=== PATIENT | female | born 1965 | race African-American/Black ===

== ENCOUNTER 2016-07-28 11:47 | Emergency (ER) | payer SELFPAY ==
[2016-07-28] MEDS ORDERED: Ondansetron HCl/PF 4 MG/2 ML Vial ONE (12:40)
--- NOTE | 2016-07-28 13:00 | RAD ---
ONE VIEW CHEST HISTORY: Chest pain. COMPARISON: 01/16/2016 FINDINGS: There is magnification of the cardiac silhouette due to the portable technique. There is diminished lung volume. Interstitial and alveolar opacities are felt to be due to chronic change. No pneumot horax or osseous abnormalities. IMPRESSION: Chronic changes. POS: [facility]
[2016-07-28 13:16] LABS: ALT (SGPT) 18 U/L (0-55); AST (SGOT) 39 U/L (5-34); Albumin 3.8 g/dL (3.5-5.0); Alkaline Phosphatase 118 U/L (40-150); Anion Gap 16 mmol/L (10-20); BUN (Urea Nitrogen) 13 mg/dL (9.8-20.1); Bilirubin, Total 0.9 mg/dL (0.2-1.2); Calc. Creatinine Clearance 0 mL/min (70-130); Calcium 8.9 mg/dL (7.8-10.44); Carbon Dioxide 24 mmol/L (22-29); Chloride 106 mmol/L (98-107); Estimated GFR-MDRD 73; Globulin 4.4 g/dL (2.4-3.5); Glucose 100 mg/dL (70-105); Potassium 3.4 mmol/L (3.5-5.1); Protein, Total 8.2 g/dL (6.0-8.3); Sodium 143 mmol/L (136-145)
[2016-07-28 13:22] LABS: CKMB 1.4 ng/mL (0-6.6); Troponin I Less than 0.010 ng/mL (< 0.028)
[2016-07-28 13:38] LABS: #Eosinphils 0.3 thou/uL (0.0-0.7); #Lymphocytes 0.8 thou/uL (1.20-3.40); #Monocytes 0.6 thou/uL (0.11-0.59); #Neutrophils 2.6 thou/uL (1.40-6.50); %Basophils 0.8 % (0.0-1.0); %Eosinophils 7.3 % (0.0-10.0); %Lymphocytes 17.7 % (21.0-51.0); %Neutrophils 60.1 % (42.0-75.0); Hemoglobin 11.1 g/dL (12.0-16.0); Mean Corpuscular HGB CONC 31.7 g/dL (32.0-36.0); Mean Corpuscular Hemoglobin 22.1 pg (27.0-31.0); Mean Corpuscular Volume 69.5 fl (81.0-99.0); Mean Platelet Volume 13.6 fL (7.4-10.4); Platelet Count 111 thou/uL (130-400); RBC Distribution Width 16.4 % (11.5-14.5); Red Blood Cell (RBC) Count 5.03 mill/uL (4.20-5.40); White Blood Cell (WBC) Count 4.3 thou/uL (4.8-10.8)
[2016-07-28 13:39] LABS: Anisocytosis MARKED = >30 cells (100X) (0-5/hpf); Microcytosis MARKED = >30 cells (100X) (0-5/hpf); PLT Morphology Comment Appears Decreased
--- NOTE | 2016-07-28 13:39 | CT ---
NONCONTRAST HEAD CT HISTORY: Dizziness (onset this morning). COMPARISON: 07/13/2016 TECHNIQUE: A noncontrast head CT is performed from the skull base to the skull vertex. FINDINGS: No parenchymal hemorrhage. No extraaxial hematoma. No midline shift. The basilar cisterns are pat ent. Brain volume is age appropriate. Cortical glass white matter differentiation is preserved. Ve ntricles and sulci are patent and symmetric. The calvarium is intact. There is adequate aeration o f the sinuses and mastoid air cells. When compared to the previous exam, no significant change. IMPRESSION: No acute intracranial process. Non-emergent brain MRI, if clinically warranted. POS: [facility]
[2016-07-28] MEDS ORDERED: Potassium Chloride 20 MEQ TAB ONE (13:50)
[2016-07-28 13:56] LABS: Bilirubin Negative (Negative); Blood, Urine Negative (Negative); Clarity Clear (Clear); Glucose, Urine (Dipstick) Negative (Negative); Leukocyte Negative (Negative); Nitrite Negative (Negative); Protein, Urine (Dipstick) Negative (Neg-Trace); Specific Gravity, Urine 1.025 (1.005-1.030)
[2016-07-28 14:14] LABS: Amphetamine Not Detected (NotDetected); Barbiturates Screen Not Detected (NotDetected); Benzodiazepine Screen Not Detected (NotDetected); Cocaine Metabolite Screen Not Detected (NotDetected); Medtox Control Line Valid? VALID (VALID); Methadone Not Detected (NotDetected); Methamphetamine Not Detected (NotDetected); Opiate Screen Not Detected (NotDetected); Oxycodone Screen Not Detected (NotDetected); Phencyclidine (PCP) Not Detected (NotDetected); THC/Cannabinoid Screen Not Detected (NotDetected); Tricyclic Screen Not Detected (NotDetected)
--- NOTE | 2016-07-28 14:44 | ERRECORD ---
[facility] EMERGENCY RECORD HPI WEAK-DIZZY CHIEF COMPLAINT: Patient presents for evaluation of dizziness. (12:27 LHOD) HISTORIAN: History provided by patient. (12:27 LHOD) TIME COURSE: APPROX. 1030 TODAY WHILE PT WAS AT WORK. REPORTED SHE TURNED HER HEAD AND FELT DIZZY. REPORTS LESS AT THIS MOMENT, BUT SHE WAS UNABLE TO WALK WITHOUT STAGGERING. DENIES SERRA. REPORTS SHE HAS HAD SOME CHEST PAINS OFF AND ON THIS WEEK. REPORTS HAS HX OF HEART FAILURE. (12:27 LHOD) ASSOCIATED WITH: Associated with ataxia, Associated with chest pain, No associated chills, No associated ear pain, No associated fever, Associated with gait disturbance, No associated headache, Associated with nausea, No associated palpitations, No associated vomiting, No associated visual changes, Associated with upper respiratory infection. (13:12 LHOD) ROS (13:07 LHOD) CONSTITUTIONAL: Historian denies fever. EYES: Historian denies eye pain, denies vision changes. ENT: Historian denies hearing changes. CARDIOVASCULAR: Historian reports chest pain, OFF AND ON MID STERNAL PAINS. HAD 1 TIME DURING EXAM WITH COUGH. RESPIRATORY: Historian reports cough, denies shortness of breath. GI: Historian denies abdominal pain, reports nausea, denies vomiting. GENITOURINARY FEMALE: Historian denies dysuria. MUSCULOSKELETAL: Historian denies back pain, denies neck pain. SKIN: Historian denies rash. NEUROLOGIC: Historian reports dizziness, denies focal weakness, reports gait changes, denies headache. REPORTS STAGGERING. HEMO/LYMPHATIC: Historian denies easy bruising. NOTES: All systems reviewed, negative except as described above. PAST MEDICAL HISTORY MEDICAL HISTORY: Flu vaccine not up to date, Tetanus immunization up to date, Pneumococcal vaccine not up to date, Past medical history includes cardiac history, congestive heart failure, Past medical history includes pulmonary disease, chronic obstructive pulmonary disease, Past medical history includes history of hyperlipidemia, currently being treated, Past medical history includes history of diabetes, Type II, Age of onset: 43, Past medical history includes history of hypertension, which has been treated, Patient is compliant, Past medical history includes pulmonary disease, asthma., HX OF HEP B, HX OF HYPOKALEMIA. (Sat Jul 28, 2016 11:58 MDEB) FEMALE SURGICAL HISTORY: Surgical history of hysterectomy. (Sat Jul 28, 2016 11:58 MDEB) PSYCHIATRIC HISTORY: No previous psychiatric history. &a-1R&a+25V*p+0X*[id number]*c202B*c15G*c2P*p-0X&a-25V&a+1R Name: Elizabeth Arreguin : 1965 F51 MedRec: [id number] AcctNum: [id number] Prepared: [facility] Jul 28, 2016 15:18 by Interface Page 1 of 4 pMD [facility] EMERGENCY RECORD ([facility] Jul 28, 2016 11:58 MDEB) SOCIAL HISTORY: Patient drinks socially, Patient denies drug use, Patient drinks socially, Patient denies drug use, Patient is a former tobacco user, smoked cigarettes, Patient quit smoking in the past year. ([facility] Jul 28, 2016 11:58 MDEB) NOTES: Nursing records reviewed. (13:34 LHOD) KNOWN ALLERGIES No Known Allergies (Unconfirmed) No Known Drug Allergies CURRENT MEDICATIONS No recorded medications VITAL SIGNS VITAL SIGNS: BP: 193/111, Pulse: 70, Resp: 20, Temp: 97.0 (Tympanic), Pain: 0, O2 sat: 99 on Room Air, Time: 07/28/2016 11:55. (11:55 MDEB) BP: 136/85, Pulse: 70, Resp: 18, Temp: 97.2, Pain: 0, O2 sat: 97 on RA, Time: 07/28/2016 14:33. (14:33 MDEB) BP: 157/88, Pulse: 65, Resp: 16, Pain: 0, O2 sat: 97 on Room Air, Time: 07/28/2016 12:30. (12:30 MDEB) BP: 158/89, Pulse: 74, Resp: 16, Pain: 0, O2 sat: 99 on Room Air, Time: 07/28/2016 13:00. (13:00 MDEB) BP: 147/74, Pulse: 67, Resp: 20, Pain: 0, O2 sat: 98 on Room Air, Time: 07/28/2016 13:30. (13:30 MDEB) BP: 165/95, Pulse: 68, Resp: 18, Pain: 0, O2 sat: 98 on Room Air, Time: 07/28/2016 14:00. (14:00 MDEB) PHYSICAL EXAM (13:13 LHOD) CONSTITUTIONAL: Vital signs reviewed, Patient afebrile, Pulse normal, Blood pressure, hypertensive, Respiratory rate normal, Patient appears non toxic, Patient appears pain free, Patient alert and oriented to person, place and time. HEAD: Head exam included findings of head atraumatic. EYES: Pupils equally round and reactive to light, Extraocular muscles intact. ENT: Ear exam normal, Pharynx exam normal. NECK: Neck exam included findings of normal range of motion, Trachea midline, no carotid bruits, no meningeal signs. RESPIRATORY CHEST: Respiratory exam included findings of no respiratory distress, Breath sounds clear. CARDIOVASCULAR: Cardiovascular exam included findings of heart rate regular rate and rhythm, Heart sounds normal. ABDOMEN FEMALE: Abdominal exam included findings of abdomen nontender. BACK: Back exam normal. UPPER EXTREMITY: Upper extremity exam normal. LOWER EXTREMITY: Lower extremity exam normal. NEURO: Neuro exam findings include patient oriented to person, &a-1R&a+25V*p+0X*[id number]*c202B*c15G*c2P*p-0X&a-25V&a+1R Name: Elizabeth Arreguin : 1965 F51 MedRec: [id number] AcctNum: [id number] Prepared: [facility] Jul 28, 2016 15:18 by Interface Page 2 of 4 pMD [facility] EMERGENCY RECORD place and time, Speech normal, Memory normal, Cranial nerves intact, no focal motor deficits, no focal sensory deficits, no nystagmus. SKIN: no rash. EKG INTERPRETATION (12:25 LHOD) 12 LEAD EKG INTERPRETATION: 12 lead EKG interpreted by Emergency Department Physician at time of study, 12 lead EKG shows normal sinus rhythm, Rate (beats per minute): 65, with no ectopics, T waves, inverted, Leads affected: II, Leads affected: III, Fisher, left. RADIOLOGYINTERPRETATION HEAD: Head CT negative, without contrast. (13:10 LHOD) CHEST: Films of the chest show, interstitial infiltrate, patchy infiltrate, DIFFUSE INCREASED INTERSTITIAL INFILTRATES WITH PATCHY INFILTRATE IN RIGHT AND LEFT LOWER T[place]AS [place]. (12:55 LHOD) MEDICATION ADMINISTRATION SUMMARY Drug Name: potassium chloride oral, Dose Ordered: 20 mEq, Route: Oral, Status: Given, Time: 13:54 07/28/2016, Drug Name: Zofran intravenous, Dose Ordered: 8 mg, Route: IV Push, Status: Given, Time: 12:45 07/28/2016, Detailed record available in Medication Service section. DOCTOR NOTES (13:48 LHOD) TEXT: 1348--AMBULATORY WITHOUT ATAXIA. LUNGS--COARSE BREATH SOUNDS WITHOUT WHEEZING. AWAITING UA. 1423--BP 136/85. PT AMBULATORY WITHOUT DIZZINESS. AT FIRST PT REPORTED SHE NEEDS REFILLS ON ALL HER MEDICATION, THEN ADDED SHE CAN GET THEM TOMORROW. DENIES NEEDING PRESCRIPTIONS. PT HAS SEVERE CHRONIC LUNG DISEASE AND MILD CHF. ADVISED TO F/U WITH HER DOCTOR. STABLE FOR DISCHARGE. PROBLEM LIST No recorded problems DIAGNOSIS (14:25 LHOD) FINAL: PRIMARY: TRANSIENT DIZZINESS---POSSIBLE BENIGN POSITIONAL VERTIGO, ADDITIONAL: Hypokalemia, LABILE HYPERTENSION. PRESCRIPTION (14:26 LHOD) Antivert/25: TABLET : 25 mg : ORAL : Quantity: 25 Unit: mg Route: ORAL Schedule: every 6 hours PRN Dispense: 10 May substitute. Refills: No Refills . NOTES: No Refills. DISPOSITION &a-1R&a+25V*p+0X*[id number]*c202B*c15G*c2P*p-0X&a-25V&a+1R Name: Elizabeth Arreguin : 1965 F51 MedRec: [id number] AcctNum: [id number] Prepared: Sat Jul 28, 2016 15:18 by Interface Page 3 of 4 pMD [facility] EMERGENCY RECORD PATIENT: Disposition Type: Discharge, Disposition: *Discharge Home, Condition: Good. (14:25 LHOD) Patient left the department. (14:34 MDEB) Chong: LHOD=MD Julia, Priscilla JUNIOREB=CHELSIE Nolan, Alia &a-1R&a+25V*p+0X*[id number]*c202B*c15G*c2P*p-0X&a-25V&a+1R Name: Elizabeth Arreguin : 1965 F51 MedRec: [id number] AcctNum: [id number] Prepared: Sat Jul 28, 2016 15:18 by Interface Page 4 of 4 pMD MTDD
--- NOTE | 2016-07-28 14:49 | PICIS ---
[facility] EMERGENCY RECORD TRIAGE ([facility] Jul 28, 2016 11:58 MDEB) PATIENT: NAME: Elizabeth Arreguin, AGE: 51, GENDER: female, : Sat 1965, TIME OF GREET: [facility] Jul 28, 2016 11:49, PREFERRED LANGUAGE: Maltese, RACE: Black or , ETHNICITY: Not or , FALL RISK: NO, ECODE BILLING MAP: [facility], SSN: [id number], Zip Code: [address], KG WEIGHT: 63.50, PHONE: , , , PERSON ID: [id number], PCP: DO Johansen Hillary. ([facility] Jul 28, 2016 11:58 MDEB) TRIAGE NOTES: DIZZY, NAUSEATED SINCE THIS AM. ([facility] Jul 28, 2016 11:58 MDEB) COMPLAINT: DIZZY. ([facility] Jul 28, 2016 11:58 MDEB) ADMISSION: URGENCY: 3 Urgent, ADMISSION SOURCE: Home, TRANSPORT: Walk-in, BED: TRIAGE. ([facility] Jul 28, 2016 11:58 MDEB) PAIN: Notes: DENIES. ([facility] Jul 28, 2016 11:58 MDEB) TRIAGE SCREENING: Patient denies suicidal ideation, Patient denies presence of domestic violence. ([facility] Jul 28, 2016 11:58 MDEB) LMP: LMP: Hysterectomy. ([facility] Jul 28, 2016 11:58 MDEB) PROVIDERS: TRIAGE NURSE: Alia Nolan RN. ([facility] Jul 28, 2016 11:58 MDEB) VITAL SIGNS: BP 193/111, Pulse 70, Resp 20, Temp 97.0, (Tympanic), Pain 0, O2 Sat 99, on Room Air, Time 07/28/2016 11:55. (11:55 MDEB) PREVIOUS VISIT ALLERGIES: No Known Drug Allergies. ([facility] Jul 28, 2016 11:58 MDEB) KNOWN ALLERGIES No Known Allergies (Unconfirmed) No Known Drug Allergies CURRENT MEDICATIONS No recorded medications VITAL SIGNS VITAL SIGNS: BP: 193/111, Pulse: 70, Resp: 20, Temp: 97.0 (Tympanic), Pain: 0, O2 sat: 99 on Room Air, Time: 07/28/2016 11:55. (11:55 MDEB) BP: 136/85, Pulse: 70, Resp: 18, Temp: 97.2, Pain: 0, O2 sat: 97 on RA, Time: 07/28/2016 14:33. (14:33 MDEB) BP: 157/88, Pulse: 65, Resp: 16, Pain: 0, O2 sat: 97 on Room Air, Time: 07/28/2016 12:30. (12:30 MDEB) BP: 158/89, Pulse: 74, Resp: 16, Pain: 0, O2 sat: 99 on Room Air, Time: 07/28/2016 13:00. (13:00 MDEB) BP: 147/74, Pulse: 67, Resp: 20, Pain: 0, O2 sat: 98 on Room Air, Time: 07/28/2016 13:30. (13:30 MDEB) BP: 165/95, Pulse: 68, Resp: 18, Pain: 0, O2 sat: 98 on Room Air, Time: 07/28/2016 14:00. (14:00 MDEB) NURSING ASSESSMENT: CARDIOVASCULAR (11:58 MDEB) CONSTITUTIONAL: Patient arrives ambulatory, Gait steady, History &a-1R&a+25V*p+0X*a7218R*c202B*c15G*c2P*p-0X&a-25V&a+1R Name: Elizabeth Arreguin : 1965 F51 MedRec: [id number] AcctNum: [id number] Prepared: Sat Jul 28, 2016 15:24 by Interface Page 1 of 12 pMD [facility] EMERGENCY RECORD obtained from patient, Patient appears, anxious, uncomfortable, Patient cooperative, Patient alert, Oriented to person, place and time, Skin warm, Skin dry, Skin normal in color, Mucous membranes pink, Mucous membranes moist, Patient is well-groomed, Patient complains of DIZZINESS, NAUSEA. PAIN: Patient rates pain as 0 out of 10. CARDIOVASCULAR: Cardiovascular assessment findings include heart rate normal, Heart rhythm, sinus arrhythmia, Associated with dizziness, described as patient spinning. RESPIRATORY/CHEST: Breath sounds clear, Respiratory assessment findings include respiratory effort easy, Respirations regular, Conversing normally, Neck and chest exam findings include trachea midline, Chest expansion equal, Chest movement symmetrical. NOTES: Emotional support needed and given, Patient tolerated procedure well. SAFETY: Side rails up, Cart/Stretcher in lowest position, Family at bedside, Call light within reach, Hospital ID band on. NURSING PROCEDURE: PROGRAM LEAD (11:58 MDEB) PROGRAM LEAD: Cardiac monitoring indicated for DIZZINESS, NAUSEA, Patient placed on compliance monitor, Heart rate: 70, showing sinus arrhythmia, Patient placed on non-invasive blood pressure monitor, Patient placed on continuous pulse oximetry. FOLLOW-UP: After procedure, alarms set and on, After procedure, patient tolerating monitoring. NOTES: Emotional support needed and given, Patient tolerated procedure well. NURSING PROCEDURE: DISCHARGE NOTE (14:33 MDEB) DISCHARGE: Patient discharged to home, ambulating without assistance, driving self, unaccompanied, Summary of Care printed/ provided, Patient requested and was provided an electronic copy of Discharge Instructions, Transition record given to patient, Discharge instructions given to patient, Simple or moderate discharge teaching performed, MEDICATION, HYDRATION, Prescriptions given and instructions on side effects given, Above person(s) verbalized understanding of discharge instructions and follow-up care, Patient treated and evaluated by physician. BELONGINGS: Belongings remain with patient, Valuables remain with patient. NOTES: Emotional support needed and given, Patient tolerated procedure well. VITAL SIGNS: BP: 136, / 85, Pulse: 70, Resp: 18, Temp: 97.2, Pain: 0, O2 sat: 97, on: RA. NURSING PROCEDURE: IV PATIENT IDENITIFIER: Patient actively involved in identification process, Patient's identity verified by patient stating name, Patient's identity verified by hospital ID mon[place]. (12:15 MDEB) &a-1R&a+25V*p+0X*i8320R*c202B*c15G*c2P*p-0X&a-25V&a+1R Name: Elizabeth Arreguin : 1965 F51 MedRec: [id number] AcctNum: [id number] Prepared: Sat Jul 28, 2016 15:24 by Interface Page 2 of 12 pMD [facility] EMERGENCY RECORD Patient actively involved in identification process, Patient's identity verified by patient stating name, Patient's identity verified by hospital ID mon[place]. (14:30 MDEB) IV SITE 1: IV therapy indicated for hydration, IV therapy indicated for medication administration, IV established, to the right antecubital, using an 18 gauge catheter, in one attempt, IV site prepped with ALCOHOL, Saline lock established, Flushed with normal saline (mls): 10, Labs drawn at time of placement, labeled in the presence of the patient and sent to lab. (12:15 MDADDISON) FOLLOW-UP SITE 1: After procedure, sterile transparent dressing applied. (12:15 MDEB) IV discontinued, due to patient being discharged, catheter intact. (14:30 MDEB) NOTES: Emotional support needed and given, Patient tolerated procedure well. (12:15 MDEB) Emotional support needed and given, Patient tolerated procedure well. (14:30 MDEB) SAFETY: Side rails up, Cart/Stretcher in lowest position, Family at bedside, Call light within reach, Hospital ID band on. (12:15 MDEB) ORDER DETAILS Order Name: Accucheck, Status: Done, Time: 12:20 07/28/2016, User: SORAIDA, - Ordered for: MD Dumont Lefayne, - Entered by: MD Dumont Lefayne - [place] Jul 28, 2016 12:07, - Quantity: 1, Order Name: B type Natriuretic Peptide, Status: Active, Time: 12:29 07/28/2016, User: KATARINA, - Ordered for: MD Dumont Lefayne, - Entered by: MD Dumont Lefayne - Sat Jul 28, 2016 12:29, - Quantity: 1, Order Name: Cardiac Profile w/CKMB & Troponin - I, Status: Active, Time: 12:06 07/28/2016, User: KATARINA, - Ordered for: MD Dumont Lefayne, - Entered by: MD Dumont Lefayne - [place] Jul 28, 2016 12:06, - Quantity: 1, Order Name: CBC with Differential, Status: Active, Time: 12:06 07/28/2016, User: KATARINA, - Ordered for: MD Dumont Lefayne, - Entered by: MD Dumont Lefayne - Sat Jul 28, 2016 12:06, - Quantity: 1, Order Name: Comprehensive Metabolic Panel, Status: Active, Time: 12:06 07/28/2016, User: KATARINA, - Ordered for: MD Dumont Lefayne, - Entered by: MD Dumont Lefayne - Sat Jul 28, 2016 12:06, - Quantity: 1, Order Name: CT Brain WO Con, Status: Active, Time: 12:20 07/28/2016, User: KATARINA, &a-1R&a+25V*p+0X*s0122F*c202B*c15G*c2P*p-0X&a-25V&a+1R Name: Elizabeth Arreguin : 1965 F51 MedRec: [id number] AcctNum: [id number] Prepared: Sat Jul 28, 2016 15:24 by Interface Page 3 of 12 pMD [facility] EMERGENCY RECORD - Ordered for: MD Dumont Lefayne, - Entered by: MD uDmont Lefayne - Sat Jul 28, 2016 12:20, - Quantity: 1, Order Name: D-Dimer (Quantitative), Status: Active, Time: 12:06 07/28/2016, User: KATARINA, - Ordered for: MD Dumont Lefayne, - Entered by: MD Dumont Lefayne - Sat Jul 28, 2016 12:06, - Quantity: 1, Order Name: Drug Screen, Urine, Status: Active, Time: 12:21 07/28/2016, User: KATARINA, - Ordered for: MD Dumont Lefayne, - Entered by: MD Dumont Lefayne - Sat Jul 28, 2016 12:21, - Quantity: 1, Order Name: EKG 12 Lead in Emergency Room, Status: Active, Time: 12:06 07/28/2016, User: KATARINA, - Ordered for: MD Dumont Lefayne, - Entered by: MD Dumont Lefayne - Sat Jul 28, 2016 12:06, - Quantity: 1, Order Name: SALINE LOCK, Status: Done, Time: 12:58 07/28/2016, User: SORAIDA, - Ordered for: MD Dumont Lefayne, - Entered by: MD Dumont Lefayne - Sat Jul 28, 2016 12:06, - Quantity: 1, Order Name: Urinalysis w/ Rflx Microscopic, Status: Active, Time: 12:21 07/28/2016, User: KATARINA, - Ordered for: MD Dumont Lefayne, - Entered by: MD Dumont Lefayne - Sat Jul 28, 2016 12:21, - Quantity: 1, Order Name: XR Chest 1 View Portable, Status: Active, Time: 12:20 07/28/2016, User: KATARINA, - Ordered for: MD Dumont Lefayne, - Entered by: MD Dumont Lefayne - Sat Jul 28, 2016 12:20, - Quantity: 1. MEDICATION ADMINISTRATION SUMMARY Drug Name: potassium chloride oral, Dose Ordered: 20 mEq, Route: Oral, Status: Given, Time: 13:54 07/28/2016, Drug Name: Zofran intravenous, Dose Ordered: 8 mg, Route: IV Push, Status: Given, Time: 12:45 07/28/2016, Detailed record available in Medication Service section. MEDICATION SERVICE potassium chloride oral: Order: potassium chloride oral (potassium chloride) - Dose: 20 mEq : Oral Ordered by: Priscilla Dumont MD Entered by: Priscilla Dumont MD Sat Jul 28, 2016 13:21 , Acknowledged by: Alia Nolan RN Sat Jul 28, 2016 13:49 Documented as given by: Alia Nolan RN Sat Jul 28, 2016 13:54 Patient, Medication, Dose, Route and Time verified prior to &a-1R&a+25V*p+0X*q2938M*c202B*c15G*c2P*p-0X&a-25V&a+1R Name: Elizabeth Arreguin : 1965 F51 MedRec: [id number] AcctNum: [id number] Prepared: Sat Jul 28, 2016 15:24 by Interface Page 4 of 12 pMD [facility] EMERGENCY RECORD administration. Amount given: 20 MEQ, Site: Medication administered P.O., Correct patient, time, route, dose and medication confirmed prior to administration, Patient advised of actions and side-effects prior to administration, Allergies confirmed and medications reviewed prior to administration, Patient in position of comfort, Side rails up, Cart in lowest position, Family at bedside. Zofran intravenous: Order: Zofran intravenous (ondansetron HCl) - Dose: 8 mg : IV Push Ordered by: Priscilla Dumont MD Entered by: Priscilla Dumont MD Sat Jul 28, 2016 12:07 , Acknowledged by: Daniella Jones RN Sat Jul 28, 2016 12:40 Documented as given by: Alia Nolan RN Sat Jul 28, 2016 12:45 Patient, Medication, Dose, Route and Time verified prior to administration. Amount given: 8 MG, IV SITE #1 IVP, initial medication, Slowly, Catheter placement confirmed via flush prior to administration, IV site without signs or symptoms of infiltration during medication administration, No swelling during administration, No drainage during administration, IV flushed after administration, Correct patient, time, route, dose and medication confirmed prior to administration, Patient advised of actions and side-effects prior to administration, Allergies confirmed and medications reviewed prior to administration, Patient in position of comfort, Side rails up, Cart in lowest position, Family at bedside. HPI WEAK-DIZZY CHIEF COMPLAINT: Patient presents for evaluation of dizziness. (12:27 LHOD) HISTORIAN: History provided by patient. (12:27 LHOD) TIME COURSE: APPROX. 1030 TODAY WHILE PT WAS AT WORK. REPORTED SHE TURNED HER HEAD AND FELT DIZZY. REPORTS LESS AT THIS MOMENT, BUT SHE WAS UNABLE TO WALK WITHOUT STAGGERING. DENIES SERRA. REPORTS SHE HAS HAD SOME CHEST PAINS OFF AND ON THIS WEEK. REPORTS HAS HX OF HEART FAILURE. (12:27 LHOD) ASSOCIATED WITH: Associated with ataxia, Associated with chest pain, No associated chills, No associated ear pain, No associated fever, Associated with gait disturbance, No associated headache, Associated with nausea, No associated palpitations, No associated vomiting, No associated visual changes, Associated with upper respiratory infection. (13:12 LHOD) ROS (13:07 LHOD) CONSTITUTIONAL: Historian denies fever. EYES: Historian denies eye pain, denies vision changes. ENT: Historian denies hearing changes. CARDIOVASCULAR: Historian reports chest pain, OFF AND ON MID STERNAL PAINS. HAD 1 TIME DURING EXAM WITH COUGH. RESPIRATORY: Historian reports cough, denies shortness of breath. &a-1R&a+25V*p+0X*n3111M*c202B*c15G*c2P*p-0X&a-25V&a+1R Name: Elizabeth Arreguin : 1965 F51 MedRec: [id number] AcctNum: [id number] Prepared: [facility] Jul 28, 2016 15:24 by Interface Page 5 of 12 pMD [facility] EMERGENCY RECORD GI: Historian denies abdominal pain, reports nausea, denies vomiting. GENITOURINARY FEMALE: Historian denies dysuria. MUSCULOSKELETAL: Historian denies back pain, denies neck pain. SKIN: Historian denies rash. NEUROLOGIC: Historian reports dizziness, denies focal weakness, reports gait changes, denies headache. REPORTS STAGGERING. HEMO/LYMPHATIC: Historian denies easy bruising. NOTES: All systems reviewed, negative except as described above. PAST MEDICAL HISTORY MEDICAL HISTORY: Flu vaccine not up to date, Tetanus immunization up to date, Pneumococcal vaccine not up to date, Past medical history includes cardiac history, congestive heart failure, Past medical history includes pulmonary disease, chronic obstructive pulmonary disease, Past medical history includes history of hyperlipidemia, currently being treated, Past medical history includes history of diabetes, Type II, Age of onset: 43, Past medical history includes history of hypertension, which has been treated, Patient is compliant, Past medical history includes pulmonary disease, asthma., HX OF HEP B, HX OF HYPOKALEMIA. ([facility] Jul 28, 2016 11:58 MDEB) FEMALE SURGICAL HISTORY: Surgical history of hysterectomy. ([facility] Jul 28, 2016 11:58 MDEB) PSYCHIATRIC HISTORY: No previous psychiatric history. ([facility] Jul 28, 2016 11:58 MDEB) SOCIAL HISTORY: Patient drinks socially, Patient denies drug use, Patient drinks socially, Patient denies drug use, Patient is a former tobacco user, smoked cigarettes, Patient quit smoking in the past year. ([facility] Jul 28, 2016 11:58 MDEB) NOTES: Nursing records reviewed. (13:34 LHOD) PHYSICAL EXAM (13:13 LHOD) CONSTITUTIONAL: Vital signs reviewed, Patient afebrile, Pulse normal, Blood pressure, hypertensive, Respiratory rate normal, Patient appears non toxic, Patient appears pain free, Patient alert and oriented to person, place and time. HEAD: Head exam included findings of head atraumatic. EYES: Pupils equally round and reactive to light, Extraocular muscles intact. ENT: Ear exam normal, Pharynx exam normal. NECK: Neck exam included findings of normal range of motion, Trachea midline, no carotid bruits, no meningeal signs. RESPIRATORY CHEST: Respiratory exam included findings of no respiratory distress, Breath sounds clear. CARDIOVASCULAR: Cardiovascular exam included findings of heart rate regular rate and rhythm, Heart sounds normal. ABDOMEN FEMALE: Abdominal exam included findings of abdomen nontender. &a-1R&a+25V*p+0X*x7025T*c202B*c15G*c2P*p-0X&a-25V&a+1R Name: Elizabeth Arreguin : 1965 F51 MedRec: [id number] AcctNum: [id number] Prepared: Sat Jul 28, 2016 15:24 by Interface Page 6 of 12 pMD [facility] EMERGENCY RECORD BACK: Back exam normal. UPPER EXTREMITY: Upper extremity exam normal. LOWER EXTREMITY: Lower extremity exam normal. NEURO: Neuro exam findings include patient oriented to person, place and time, Speech normal, Memory normal, Cranial nerves intact, no focal motor deficits, no focal sensory deficits, no nystagmus. SKIN: no rash. LAB INTERPRETATION (13:34 LHOD) INTERPRETATION: I reviewed the lab results, CBC abnormal, White blood cell count decreased, Hemoglobin decreased, Hematocrit decreased, Chemistry abnormal, Potassium decreased, Cardiac enzymes abnormal, BNP elevated, Urinalysis normal, Urine toxicology negative, D-dimer, equivocal. EVENTS TRANSFER: Triage to Emergency Triage. (Sat Jul 28, 2016 11:58 MDEB) Emergency Triage to Main ED -03. (11:58 MDEB) Removed from Emergency Main ED -03. (14:34 MDEB) RADIOLOGYINTERPRETATION HEAD: Head CT negative, without contrast. (13:10 LHOD) CHEST: Films of the chest show, interstitial infiltrate, patchy infiltrate, DIFFUSE INCREASED INTERSTITIAL INFILTRATES WITH PATCHY INFILTRATE IN RIGHT AND LEFT LOWER [place]. (12:55 LHOD) EKG INTERPRETATION (12:25 LHOD) 12 LEAD EKG INTERPRETATION: 12 lead EKG interpreted by Emergency Department Physician at time of study, 12 lead EKG shows normal sinus rhythm, Rate (beats per minute): 65, with no ectopics, T waves, inverted, Leads affected: II, Leads affected: III, [place], left. DOCTOR NOTES (13:48 LHOD) TEXT: 1348--AMBULATORY WITHOUT ATAXIA. LUNGS--COARSE BREATH SOUNDS WITHOUT WHEEZING. AWAITING UA. 1423--BP 136/85. PT AMBULATORY WITHOUT DIZZINESS. AT FIRST PT REPORTED SHE NEEDS REFILLS ON ALL HER MEDICATION, THEN ADDED SHE CAN GET THEM TOMORROW. DENIES NEEDING PRESCRIPTIONS. PT HAS SEVERE CHRONIC LUNG DISEASE AND MILD CHF. ADVISED TO F/U WITH HER DOCTOR. STABLE FOR DISCHARGE. PROBLEM LIST No recorded problems DIAGNOSIS (14:25 LHOD) &a-1R&a+25V*p+0X*i9659Y*c202B*c15G*c2P*p-0X&a-25V&a+1R Name: Elizabeth Arreguin : 1965 F51 MedRec: [id number] AcctNum: [id number] Prepared: Sat Jul 28, 2016 15:24 by Interface Page 7 of 12 pMD [facility] EMERGENCY RECORD FINAL: PRIMARY: TRANSIENT DIZZINESS---POSSIBLE BENIGN POSITIONAL VERTIGO, ADDITIONAL: Hypokalemia, LABILE HYPERTENSION. DISPOSITION PATIENT: Disposition Type: Discharge, Disposition: *Discharge Home, Condition: Good. (14:25 LHOD) Patient left the department. (14:34 SORAIDA) INSTRUCTION (14:27 LHOD) DISCHARGE: DIZZINESS, UNK CAUSE, HYPOKALEMIA, HYPERTENSION, ESTABLISHED. FOLLOWUP: DO Johansen Hillary, [facility], [address] [place] [address], , Follow up with Primary Care Physician in 2-3 days. SPECIAL: CONTINUE YOUR POTASSIUM. RESTART YOUR BLOOD PRESSURE MEDICATION. *RETURN IF WORSE Follow-up with your PCP. PRESCRIPTION (14:26 LHOD) Antivert/25: TABLET : 25 mg : ORAL : Quantity: 25 Unit: mg Route: ORAL Schedule: every 6 hours PRN Dispense: 10 May substitute. Refills: No Refills . NOTES: No Refills. IMAGING WORK/SCHOOL RELEASE: Image captured from scanner. (14:29 SCHI) *DISCHARGE INSTRUCTIONS RECEIPT: Image captured from scanner. (14:59 SORAIDA) *SUPPLY CHARGE SHEET: Image captured from scanner. (14:59 SORAIDA) ADMIN (15:13 LHOD) DIGITAL SIGNATURE: MD Julia, Priscilla. RESULTS RADIOLOGY: XR Chest 1 View Portable Observe DT: Sat Jul 28, 2016 12:22, CXRP ONE VIEW CHEST HISTORY: Chest pain. COMPARISON: 01/16/2016 FINDINGS: There is magnification of the cardiac silhouette due to the portable technique. There is diminished &a-1R&a+25V*p+0X*g7523N*c202B*c15G*c2P*p-0X&a-25V&a+1R Name: Elizabeth Arreguin : 1965 F51 MedRec: [id number] AcctNum: [id number] Prepared: Sat Jul 28, 2016 15:24 by Interface Page 8 of 12 pMD [facility] EMERGENCY RECORD lung volume. Interstitial and alveolar opacities are felt to be due to chronic change. No pneumot horax or osseous abnormalities. IMPRESSION: Chronic changes. POS: PARRISH . (13:12 LHOD) CT Brain WO Con Observe DT: Sat Jul 28, 2016 12:22, BR NONCONTRAST HEAD CT HISTORY: Dizziness (onset this morning). COMPARISON: 07/13/2016 TECHNIQUE: A noncontrast head CT is performed from the skull base to the skull vertex. FINDINGS: No parenchymal hemorrhage. No extraaxial hematoma. No midline shift. The basilar cisterns are pat ent. Brain volume is age appropriate. Cortical glass white matter differentiation is preserved. Ve ntricles and sulci are patent and symmetric. The calvarium is intact. There is adequate aeration o f the sinuses and mastoid air cells. When compared to the previous exam, no significant change. IMPRESSION: No acute intracranial process. Non-emergent brain MRI, if clinically warranted. POS: PARRISH . (14:07 LHOD) LABORATORY: Comprehensive Metabolic Panel Collection DT: Sat Jul 28, 2016 12:45, See comment below , V , Sodium 143 mmol/L, Range (136-145), *Potassium 3.4 - L mmol/L, Range (3.5-5.1), Chloride 106 mmol/L, Range (98-107), Carbon Dioxide 24 mmol/L, Range (22-29), Anion Gap 16 mmol/L, Range (10-20), BUN (Urea Nitrogen) 13 mg/dL, Range (9.8-20.1), Creatinine 0.97 mg/dL, Range (0.6-1.1), &a-1R&a+25V*p+0X*i7323Z*c202B*c15G*c2P*p-0X&a-25V&a+1R Name: Elizabeth Arreguin : 1965 F51 MedRec: [id number] AcctNum: [id number] Prepared: Sat Jul 28, 2016 15:24 by Interface Page 9 of 12 pMD [facility] EMERGENCY RECORD Estimated GFR-MDRD 73 , Reference Range for Estimated GFR: Greater than 90, mL/min/1.73 m2 NOTE: The MDRD equation has not been validated for use, with the elderly (over 70 years of age), women, patients with, serious comorbid condition or persons with extremes of body size, muscle, mass, or nutritional status. , Glucose 100 mg/dL, Range (70-105), Calcium 8.9 mg/dL, Range (7.8-10.44), Bilirubin, Total 0.9 mg/dL, Range (0.2-1.2), Protein, Total 8.2 g/dL, Range (6.0-8.3), NOTE: Plasma values are generally 0.3 to 0.5 g/dL higher than serum values, due to the presence of fibrinogen. , Albumin 3.8 g/dL, Range (3.5-5.0), *Globulin 4.4 - H g/dL, Range (2.4-3.5), *Alb/Glob Ratio 0.9 - L g/dL, Range (1.2-2.2), Alkaline Phosphatase 118 U/L, Range (40-150), *AST (SGOT) 39 - H U/L, Range (5-34), ALT (SGPT) 18 U/L, Range (0-55). (13:20 LHOD) B type Natriuretic Peptide Collection DT: Sat Jul 28, 2016 12:45, See comment below , V , *B type Natriuretic Peptide 107.4 - H pg/mL, Range (0-100). (13:34 LHOD) Cardiac Profile w/CKMB & TropI Collection DT: Sat Jul 28, 2016 12:45, See comment below , V , CKMB 1.4 ng/mL, Range (0-6.6), Troponin I Less than 0.010 ng/mL, Range (< 0.028), Reference Range , 0.00 - 0.028 ng/mL Negative 0.029 - 0.29 ng/mL , Indeterminate Greater or Equal to 0.3 ng/mL Strongly suggests [place] , . (13:34 LHOD) D-Dimer (Quantitative) Collection DT: Sat Jul 28, 2016 12:45, See comment below , V , *D-Dimer Test 0.72 - H *mcg/mL, Range (0.27-0.43), * Reference Range Units: mcg/mL of fibrinogen equivalent, units(FEU) Based upon a retrospective study of [facility] patients in October 2005, a result of Less than 0.44 mcg/mL FEU is, predictive of the absence of a DVT or PE. . (13:35 LHOD) CBC with Differential Collection DT: Sat Jul 28, 2016 12:45, See comment below , V , *White Blood Cell (WBC) Count 4.3 - L thou/uL, Range (4.8-10.8), Red Blood Cell (RBC) Count 5.03 mill/uL, Range (4.20-5.40), *Hemoglobin 11.1 - L g/dL, Range (12.0-16.0), *Hematocrit 34.9 - L %, Range (36.0-47.0), &a-1R&a+25V*p+0X*l9415J*c202B*c15G*c2P*p-0X&a-25V&a+1R Name: Elizabeth Arreguin : 1965 F51 MedRec: [id number] AcctNum: [id number] Prepared: Sat Jul 28, 2016 15:24 by Interface Page 10 of 12 pMD [facility] EMERGENCY RECORD *Mean Corpuscular Volume 69.5 - L fl, Range (81.0-99.0), *Mean Corpuscular Hemoglobin 22.1 - L pg, Range (27.0-31.0), *Mean Corpuscular HGB CONC 31.7 - L g/dL, Range (32.0-36.0), *RBC Distribution Width 16.4 - H %, Range (11.5-14.5), *Platelet Count 111 - L thou/uL, Range (130-400), *Mean Platelet Volume 13.6 - H fL, Range (7.4-10.4), %Neutrophils 60.1 %, Range (42.0-75.0), *%Lymphocytes 17.7 - L %, Range (21.0-51.0), *%Monocytes 14.0 - H %, Range (0.0-10.0), %Eosinophils 7.3 %, Range (0.0-10.0), %Basophils 0.8 %, Range (0.0-1.0), #Neutrophils 2.6 thou/uL, Range (1.40-6.50), *#Lymphocytes 0.8 - L thou/uL, Range (1.20-3.40), *#Monocytes 0.6 - H thou/uL, Range (0.11-0.59), #Eosinphils 0.3 thou/uL, Range (0.0-0.7), #Basophils 0.0 thou/uL, Range (0.0-0.2), Anisocytosis MARKED = >30 cells (100X), Range (0-5/hpf), Microcytosis MARKED = >30 cells (100X), Range (0-5/hpf), *PLT Morphology Comment Appears Decreased - , * L . (13:44 LHOD) Urinalysis w/ Rflx Microscopic Collection DT: Sat Jul 28, 2016 13:56, Color Yellow , Range (Yellow), Clarity Clear , Range (Clear), Specific [place], Urine 1.025 , Range (1.005-1.030), pH, Urine 7.0 , Range (5.0-9.0), Leukocyte Negative , Range (Negative), Nitrite Negative , Range (Negative), Protein, Urine (Dipstick) Negative mg/dL, Range (Neg-Trace), Glucose, Urine (Dipstick) Negative mg/dL, Range (Negative), Ketone, Urine Negative mg/dL, Range (Negative), *Urobilinogen 2.0 - H mg/dL, Range (0.2-1.0), Bilirubin Negative , Range (Negative), Blood, Urine Negative , Range (Negative). (14:07 LHOD) Drug Screen, Urine Collection DT: [facility] Jul 28, 2016 13:56, THC/Cannabinoid Screen Not Detected , Range (NotDetected), Phencyclidine (PCP) Not Detected , Range (NotDetected), Cocaine Metabolite Screen Not Detected , Range (NotDetected), Methamphetamine Not Detected , Range (NotDetected), Opiate Screen Not Detected , Range (NotDetected), Amphetamine Not Detected , Range (NotDetected), Benzodiazepine Screen Not Detected , Range (NotDetected), Tricyclic Screen Not Detected , Range (NotDetected), Methadone Not Detected , Range (NotDetected), Barbiturates Screen Not Detected , Range (NotDetected), Oxycodone Screen Not Detected , Range (NotDetected), Propoxyphene Screen Not Detected , Range (NotDetected), Drug Screen Cutoff , Range (), [employer] Profile-V Panel for Qualitative Drugs of &a-1R&a+25V*p+0X*[id number]*c202B*c15G*c2P*p-0X&a-25V&a+1R Name: Elizabeth Arreguin : 1965 F51 MedRec: [id number] AcctNum: [id number] Prepared: [facility] Jul 28, 2016 15:24 by Interface Page 11 of 12 pMD [facility] EMERGENCY RECORD Abuse assays are for, presumptive screening testing only. The drug class and detection limits, are as follows: Drug Class Detection Limit Amphetamine , 500 ng/mL* Barbiturates 200 ng/mL , Benzodiazepines 150 ng/mL* Cocaine 150 ng/mL*, Methamphetamine 500 ng/mL* Methadone 200, ng/mL* Opiates 100 ng/mL* Oxycodone , 100 ng/mL PCP 25 ng/mL Propoxyphene , 300 ng/mL Tricyclic Antidepressants 300 ng/mL Cannabinoids (THC) , 50 ng/mL Tests which yield a presumptive positive result must be , tested using a more specific alternate chemical method in order to obtain, a confirmed analytical result. Additional confirmation and identification, may be ordered on a routine basis, if desired. Presumptive positive urines, are held for two weeks. . (14:20 LHOD) Chong: LHPRATIK=MD Julia, Priscilla QUIGLEY=CHELSIE Nolan, Alia WINSLOW=CHELSIE Jones, Slinda &a-1R&a+25V*p+0X*[id number]*c202B*c15G*c2P*p-0X&a-25V&a+1R Name: Elizabeth Arreguin [place] : 1965 F51 MedRec: [id number] AcctNum: [id number] Prepared: [facility] Jul 28, 2016 15:24 by Interface Page 12 of 12 pMD MTDD
== END 2016-07-28 14:33 | disposition home or self-care (01) ==
LOC: MADERS 11:47
DX: I11.0 Hypertensive heart disease with heart failure (principal); E87.6 Hypokalemia; I50.9 Heart failure, unspecified; J44.9 Chronic obstructive pulmonary disease, unspecified; E78.5 Hyperlipidemia, unspecified; E11.9 Type 2 diabetes mellitus without complications; J45.909 Unspecified asthma, uncomplicated; Z87.891 Personal history of nicotine dependence
CPT/HCPCS: 70450; 71010; 80053; 80306; 81003; 82553; 83880; 84484; 85025; 85379; 93005; 96374; J2405

== ENCOUNTER 2016-08-15 18:17 | Emergency (ER) | payer SELFPAY ==
[2016-08-15 19:41] LABS: INR-International Normal Ratio 1.3; PTT 25.7 SEC (22.9-36.1); Prothrombin Time 16.1 SEC (12.0-14.7)
[2016-08-15 19:47] LABS: ALT (SGPT) 25 U/L (0-55); AST (SGOT) 37 U/L (5-34); Albumin 3.5 g/dL (3.5-5.0); Alkaline Phosphatase 93 U/L (40-150); Anion Gap 15 mmol/L (10-20); BUN (Urea Nitrogen) 14 mg/dL (9.8-20.1); Bilirubin, Total 0.7 mg/dL (0.2-1.2); Calc. Creatinine Clearance 0 mL/min (70-130); Calcium 8.9 mg/dL (7.8-10.44); Carbon Dioxide 23 mmol/L (22-29); Chloride 106 mmol/L (98-107); Estimated GFR-MDRD 61; Globulin 3.7 g/dL (2.4-3.5); Glucose 210 mg/dL (70-105); Potassium 3.9 mmol/L (3.5-5.1); Protein, Total 7.2 g/dL (6.0-8.3); Sodium 140 mmol/L (136-145)
[2016-08-15 19:57] LABS: #Eosinphils 0.2 thou/uL (0.0-0.7); #Lymphocytes 0.8 thou/uL (1.20-3.40); #Monocytes 0.4 thou/uL (0.11-0.59); #Neutrophils 2.8 thou/uL (1.40-6.50); %Basophils 0.9 % (0.0-1.0); %Eosinophils 5.3 % (0.0-10.0); %Lymphocytes 19.8 % (21.0-51.0); %Monocytes 9.1 % (0.0-10.0); %Neutrophils 64.8 % (42.0-75.0); Anisocytosis SLIGHT = 6-15 cells (100X) (0-5/hpf); Hemoglobin 11.2 g/dL (12.0-16.0); Hypochromia MODERATE=16-30 cells (100X) (0-5/hpf); Large Platelets SLIGHT; MDiff Complete? YES; Mean Corpuscular HGB CONC 31.8 g/dL (32.0-36.0); Mean Corpuscular Hemoglobin 22.1 pg (27.0-31.0); Mean Corpuscular Volume 69.4 fl (81.0-99.0); Mean Platelet Volume 13.2 fL (7.4-10.4); Microcytosis MODERATE=15-30 cells (100X) (0-5/hpf); PLT Morphology Comment Appears Decreased; Platelet Count 118 thou/uL (130-400); Polychromasia SLIGHT = 2-3 cells (100X) (0-2/hpf); RBC Distribution Width 16.1 % (11.5-14.5); Red Blood Cell (RBC) Count 5.05 mill/uL (4.20-5.40); Target Cells SLIGHT = 2-5 cells (100X) (0-1/hpf); White Blood Cell (WBC) Count 4.2 thou/uL (4.8-10.8)
== END 2016-08-15 20:25 | disposition home or self-care (01) ==
LOC: MADERS 18:17
DX: K64.9 Unspecified hemorrhoids (principal); K92.1 Melena; E11.9 Type 2 diabetes mellitus without complications; J44.9 Chronic obstructive pulmonary disease, unspecified; E78.5 Hyperlipidemia, unspecified; J45.909 Unspecified asthma, uncomplicated; I11.0 Hypertensive heart disease with heart failure; I50.9 Heart failure, unspecified; Z87.891 Personal history of nicotine dependence; Z79.84 Long term (current) use of oral hypoglycemic drugs; Z79.82 Long term (current) use of aspirin; Z79.899 Other long term (current) drug therapy
CPT/HCPCS: 80053; 82272; 85025; 85610; 85730

== ENCOUNTER 2017-06-09 21:35 | Emergency (ER) | payer SELFPAY ==
[2017-06-09] MEDS ORDERED: Benzonatate 100 MG CAP ONE (22:30)
[2017-06-09] MEDS ORDERED: Azithromycin 250 MG TAB ONE (22:30)
[2017-06-09] MEDS ORDERED: Dexamethasone 4 MG TAB ONE (22:30)
--- NOTE | 2017-06-09 22:38 | RAD ---
PORTABLE UPRIGHT FRONTAL CHEST: Date: 06/09/17 COMPARISON: 07/28/16 and 01/16/16. HISTORY: Cough. FINDINGS: Inspiration is shallow, limiting detailed assessment. Prior studies have demonstrated extensive nonsp ecific linear interstitial opacity. These findings are again seen, more conspicuous on today's examin ation, especially in the left perihilar region. It is uncertain whether this increased conspicuity in the left perihilar region is secondary to shallow inspiration or true worsening. There is no pneumot horax, large volume pleural effusion, or lobar consolidation. Bilateral hilar prominence again noted, suspicious for stable underlying lymphadenopathy. IMPRESSION: Chronic interstitial opacities are noted, slightly more confluent in the left perihilar region. Recom mend follow-up PA and lateral chest imaging for further assessment. Increased density in bilateral pe rihilar regions suggest underlying lymphadenopathy, as seen on prior chest CT dating back to 02/18/14 . POS: [facility]
--- NOTE | 2017-06-09 22:48 | RAD ---
FRONTAL AND LATERAL IMAGING OF CHEST: Date: 06/09/17 COMPARISON: 07/13/16. HISTORY: Cough and congestion. FINDINGS: There is bilateral hilar prominence and increased density in the subcarinal region, stable when bobby red to prior imaging, evidence of stable nonspecific lymphadenopathy. There are diffuse increased kevin ear and interstitial densities, most prominent in the perihilar regions, left greater than right, unc hanged when compared to the 07/13/16 exam. No significant pleural fluid. No focal consolidation. IMPRESSION: Stable mediastinal and hilar adenopathy suspected. Stable diffuse increased interstitial density. No acute findings. POS: [facility]
== END 2017-06-09 22:35 | disposition home or self-care (01) ==
LOC: MADERS 21:35
DX: J20.9 Acute bronchitis, unspecified (principal); E11.9 Type 2 diabetes mellitus without complications; J44.9 Chronic obstructive pulmonary disease, unspecified; E78.5 Hyperlipidemia, unspecified; I11.0 Hypertensive heart disease with heart failure; I50.9 Heart failure, unspecified; Z87.891 Personal history of nicotine dependence; Z79.899 Other long term (current) drug therapy
CPT/HCPCS: 71010; 71020; J8540

== ENCOUNTER 2017-10-03 04:29 | Emergency (ER) | payer SELFPAY ==
[2017-10-03 06:28] LABS: Hemoglobin 12.6 g/dL (12.0-16.0); INR-International Normal Ratio 1.1; Mean Corpuscular HGB CONC 30.9 g/dL (32.0-36.0); Mean Corpuscular Hemoglobin 21.1 pg (27.0-31.0); Mean Corpuscular Volume 68.1 fL (81.0-99.0); Mean Platelet Volume 11.1 fL (7.4-10.4); Platelet Count 149 thou/uL (130-400); Prothrombin Time 14.5 SEC (12.0-14.7); RBC Distribution Width 17.5 % (11.5-14.5); Red Blood Cell (RBC) Count 5.96 mill/uL (4.20-5.40); White Blood Cell (WBC) Count 11.6 thou/uL (4.8-10.8)
[2017-10-03 06:29] LABS: PTT 22.4 SEC (22.9-36.1)
[2017-10-03] MEDS ORDERED: Phenergan/Codeine 10-6.25mg/5ml UDCUP ONE (06:32)
[2017-10-03] MEDS ORDERED: AMOXicillin 250 MG CAP ONE (06:32)
[2017-10-03 06:37] LABS: #Basophils 0.2 thou/uL (0.0-0.2); #Eosinphils 0.3 thou/uL (0.0-0.7); #Lymphocytes 1.6 thou/uL (1.20-3.40); #Monocytes 0.9 thou/uL (0.11-0.59); #Neutrophils 8.6 thou/uL (1.40-6.50); %Basophils 1.3 % (0.0-1.0); %Eosinophils 2.7 % (0.0-10.0); %Lymphocytes 13.7 % (21.0-51.0); %Monocytes 8.1 % (0.0-10.0); %Neutrophils 74.2 % (42.0-75.0)
[2017-10-03 06:51] LABS: ALT (SGPT) 19 U/L (8-55); AST (SGOT) 16 U/L (5-34); Albumin 4.1 g/dL (3.5-5.0); Alkaline Phosphatase 83 U/L (40-150); Anion Gap 18 mmol/L (10-20); BUN (Urea Nitrogen) 27 mg/dL (9.8-20.1); Bilirubin, Total 0.9 mg/dL (0.2-1.2); Calc. Creatinine Clearance 0 mL/min (70-130); Calcium 10.3 mg/dL (7.8-10.44); Carbon Dioxide 23 mmol/L (22-29); Chloride 99 mmol/L (98-107); Estimated GFR-MDRD 45; Globulin 4.2 g/dL (2.4-3.5); Glucose 519 mg/dL (70-105); Potassium 4.3 mmol/L (3.5-5.1); Protein, Total 8.3 g/dL (6.0-8.3); Sodium 136 mmol/L (136-145)
--- NOTE | 2017-10-03 08:16 | RAD ---
PORTABLE CHEST 1 VIEW: Date: 10/03/17 Time: 0600 hours HISTORY: Cough. FINDINGS/IMPRESSION: Comparison made with exam of 06/09/17. The heart size is normal. There are chronic changes in the lung perez bilaterally. No lobar consolid ation, pneumothoraces, or large effusions are seen. Small pleural effusions may be present. POS: [facility]
== END 2017-10-03 07:45 | disposition home or self-care (01) ==
LOC: MADERS 04:29
DX: J20.9 Acute bronchitis, unspecified (principal); K21.9 Gastro-esophageal reflux disease without esophagitis; R21 Rash and other nonspecific skin eruption; E11.9 Type 2 diabetes mellitus without complications; I11.0 Hypertensive heart disease with heart failure; I50.9 Heart failure, unspecified; J44.9 Chronic obstructive pulmonary disease, unspecified; E78.5 Hyperlipidemia, unspecified; Z87.891 Personal history of nicotine dependence; Z79.52 Long term (current) use of systemic steroids; Z79.899 Other long term (current) drug therapy
CPT/HCPCS: 71045; 80053; 83880; 85025; 85610; 85730; 99283

== ENCOUNTER 2018-05-26 04:09 | Emergency (ER) | payer OTHER ==
[2018-05-26 05:33] LABS: %Lymphocytes 22.6 % (21.0-51.0); %Monocytes 17.8 % (0.0-10.0); %Neutrophils 51.2 % (42.0-75.0); Hemoglobin 10.7 g/dL (12.0-16.0); Mean Corpuscular HGB CONC 30.1 g/dL (32.0-36.0); Mean Corpuscular Hemoglobin 20.3 pg (27.0-31.0); Mean Corpuscular Volume 67.2 fL (78.0-98.0); Mean Platelet Volume 10.4 fL (7.4-10.4); Platelet Count 128 thou/uL (130-400); RBC Distribution Width 16.6 % (11.5-14.5); Red Blood Cell (RBC) Count 5.26 mill/uL (4.20-5.40); White Blood Cell (WBC) Count 4.2 thou/uL (4.8-10.8)
[2018-05-26 05:34] LABS: #Eosinphils 0.3 thou/uL (0.0-0.7); #Monocytes 0.8 thou/uL (0.11-0.59); #Neutrophils 2.2 thou/uL (1.40-6.50); %Basophils 0.8 % (0.0-1.0); %Eosinophils 7.6 % (0.0-10.0); Band 2 % (5-11); Eosinophils 5 % (0-10); Lymphocytes 23 % (21-51); Monocytes 11 % (0-10); Neutrophil 56 % (42-75); Reactive Lymphocytes 3 % (0-10)
[2018-05-26 05:35] LABS: Hypochromia MODERATE=16-30 cells (100X) (0-5/hpf); Microcytosis SLIGHT = 6-15 cells (100X) (0-5/hpf); PLT Morphology Comment Appears Decreased; RBC Morphology Abnormal; Target Cells MODERATE= 6-15 cells (100X) (0-1/hpf)
[2018-05-26 05:36] LABS: MDiff Complete? YES; Manual Diff?? YES
[2018-05-26 05:38] LABS: ALT (SGPT) 16 U/L (8-55); AST (SGOT) 37 U/L (5-34); Albumin 3.6 g/dL (3.5-5.0); Alkaline Phosphatase 112 U/L (40-150); Anion Gap 12 mmol/L (10-20); BUN (Urea Nitrogen) 14 mg/dL (9.8-20.1); Bilirubin, Total 0.7 mg/dL (0.2-1.2); Calc. Creatinine Clearance 0 mL/min (70-130); Calcium 8.7 mg/dL (7.8-10.44); Carbon Dioxide 26 mmol/L (22-29); Chloride 108 mmol/L (98-107); Estimated GFR-MDRD 75; Glucose 128 mg/dL (70-105); Potassium 3.6 mmol/L (3.5-5.1); Protein, Total 7.6 g/dL (6.0-8.3); Sodium 142 mmol/L (136-145)
[2018-05-26 05:39] LABS: CKMB 1.7 ng/mL (0-6.6); Troponin I 0.016 ng/mL (< 0.028)
[2018-05-26] MEDS ORDERED: methylPREDNISolone Sod Succ/PF 125 MG/2 ML VIAL ONE (06:28)
--- NOTE | 2018-05-26 08:37 | RAD ---
SINGLE VIEW OF THE CHEST: Comparison: 10-03-17 History: Dyspnea. FINDINGS: Single view of the chest shows a cardiomediastinal silhouette which is upper limits of normal in size . There are increased interstitial markings in the bilateral upper lobes. There may be superimposed a irspace opacities also seen in this region. This was not seen on the prior radiograph. No pleural eff usions seen. IMPRESSION: Bilateral upper lobe mixed opacities may represent multifocal infiltrates. POS: [facility]
== END 2018-05-26 07:28 | disposition short-term general hospital (02) ==
LOC: MADERS 04:09
DX: R06.00 Dyspnea, unspecified (principal); E11.9 Type 2 diabetes mellitus without complications; J44.9 Chronic obstructive pulmonary disease, unspecified; E78.5 Hyperlipidemia, unspecified; I11.0 Hypertensive heart disease with heart failure; I50.9 Heart failure, unspecified; E87.6 Hypokalemia; Z87.891 Personal history of nicotine dependence
CPT/HCPCS: 71045; 80053; 82553; 83880; 84484; 85025; 93005; 96374; J2930; J7620

== ENCOUNTER 2018-06-20 13:51 | Emergency (ER) | payer SELFPAY ==
[2018-06-20 14:44] LABS: Anion Gap 16 mmol/L (10-20); BUN (Urea Nitrogen) 12 mg/dL (9.8-20.1); Calc. Creatinine Clearance 0 mL/min (70-130); Calcium 9.4 mg/dL (7.8-10.44); Carbon Dioxide 23 mmol/L (22-29); Chloride 106 mmol/L (98-107); Estimated GFR-MDRD 66; Glucose 86 mg/dL (70-105); Potassium 3.8 mmol/L (3.5-5.1); Sodium 141 mmol/L (136-145)
--- NOTE | 2018-06-20 15:11 | RAD ---
UPRIGHT PORTABLE CHEST ONE VIEW: HISTORY: A 53-year-old female with a history of cough. COMPARISON: 05/28/2018 FINDINGS: Extensive bilateral interstitial, linear, and reticulonodular parenchymal changes, which appear stabl e from the prior study, having an appearance certainly consistent with that of extensive chronic inte rstitial lung disease. Borderline cardiomegaly. Slight blunting of the costophrenic angles bilatera lly. It would be difficult to totally exclude some acute interstitial process, in addition to the ex tensive underlying chronic change. IMPRESSION: 1. Extensive bilateral interstitial changes, which appear stable. 2. Probable small pleural effusions. 3. Borderline cardiomegaly. 4. No significant new process. POS: [facility]
[2018-06-20 15:13] LABS: Eosinophils 5 % (0-10); Hemoglobin 12.1 g/dL (12.0-16.0); Large Platelets SLIGHT; Lymphocytes 16 % (21-51); MDiff Complete? YES; Mean Corpuscular HGB CONC 31.5 g/dL (32.0-36.0); Mean Corpuscular Hemoglobin 22.1 pg (27.0-31.0); Mean Platelet Volume 11.9 fL (7.4-10.4); Microcytosis SLIGHT = 6-15 cells (100X) (0-5/hpf); Monocytes 9 % (0-10); Neutrophil 65 % (42-75); PLT Morphology Comment Appears Decreased; Platelet Count 92 thou/uL (130-400); Polychromasia SLIGHT = 2-3 cells (100X) (0-2/hpf); RBC Distribution Width 20.5 % (11.5-14.5); Reactive Lymphocytes 5 % (0-10); Red Blood Cell (RBC) Count 5.48 mill/uL (4.20-5.40); Target Cells SLIGHT = 2-5 cells (100X) (0-1/hpf); White Blood Cell (WBC) Count 4.4 thou/uL (4.8-10.8)
[2018-06-20] MEDS ORDERED: Furosemide 20 MG/2 ML VIAL ONE (15:14)
== END 2018-06-20 16:15 | disposition short-term general hospital (02) ==
LOC: MADERS 13:51
DX: J84.9 Interstitial pulmonary disease, unspecified (principal); E87.70 Fluid overload, unspecified; E11.9 Type 2 diabetes mellitus without complications; J44.9 Chronic obstructive pulmonary disease, unspecified; I50.9 Heart failure, unspecified; I11.0 Hypertensive heart disease with heart failure; E78.5 Hyperlipidemia, unspecified; E87.6 Hypokalemia; Z87.891 Personal history of nicotine dependence
CPT/HCPCS: 71045; 80048; 83735; 83880; 84443; 84484; 85025; 87804; 93005; 96374; J1940

== ENCOUNTER 2020-07-22 09:29 | Emergency (ER) | payer BC ==
[2020-07-22 10:46] LABS: Hemoglobin 13.2 g/dL (12.0-16.0); Mean Corpuscular HGB CONC 32.4 g/dL (32.0-36.0); Mean Corpuscular Hemoglobin 28.7 pg (27.0-31.0); Mean Corpuscular Volume 88.6 fL (78.0-98.0); Mean Platelet Volume 9.9 fL (7.4-10.4); Platelet Count 111 thou/uL (130-400); RBC Distribution Width 16.2 % (11.5-14.5); Red Blood Cell (RBC) Count 4.59 mill/uL (4.20-5.40); White Blood Cell (WBC) Count 7.2 thou/uL (4.8-10.8)
[2020-07-22 11:00] LABS: ALT (SGPT) 13 U/L (8-55); AST (SGOT) 24 U/L (5-34); Albumin 3.5 g/dL (3.5-5.0); Alkaline Phosphatase 74 U/L (40-110); Anion Gap 15 mmol/L (10-20); BUN (Urea Nitrogen) 15 mg/dL (9.8-20.1); Bilirubin, Total 1.1 mg/dL (0.2-1.2); Calc. Creatinine Clearance 0 mL/min (70-130); Calcium 8.6 mg/dL (7.8-10.44); Carbon Dioxide 22 mmol/L (22-29); Chloride 107 mmol/L (98-107); Globulin 3.3 g/dL (2.4-3.5); Glucose 106 mg/dL (70-105); Potassium 3.5 mmol/L (3.5-5.1); Protein, Total 6.8 g/dL (6.0-8.3); Sodium 140 mmol/L (136-145)
--- NOTE | 2020-07-22 11:12 | RAD ---
PA AND LATERAL CHEST: INDICATION: Shortness of breath with cough. COMPARISON: 01/06/2020. FINDINGS: Cardiomegaly is seen. There is vascular engorgement. Diffuse rather coarse interstitial prominence is seen bilaterally which has been previously described . This is similar when compared to films dating back to 2018. No focal infiltrate or consolidation. IMPRESSION: Chronic coarse interstitial changes throughout both lungs with stranding into the left upper lob whic h appears stable. No definite acute process. POS: [facility]
[2020-07-22 11:14] LABS: Band 6 % (5-11); Eosinophils 6 % (0-10); Lymphocytes 6 % (21-51); MDiff Complete? YES; Metamyelocyte 2 % (0-0); Monocytes 3 % (0-10); Neutrophil 77 % (42-75); Platelet Morphology Comment Appears Decreased; RBC Morphology Normal
[2020-07-22 11:57] LABS: CKMB 1.1 ng/mL (0-6.6)
[2020-07-22] MEDS ORDERED: Furosemide 20 MG/2 ML VIAL ONE (12:22)
== END 2020-07-22 13:32 | disposition short-term general hospital (02) ==
LOC: MADERS 09:29
DX: I11.0 Hypertensive heart disease with heart failure (principal); I50.9 Heart failure, unspecified; R09.02 Hypoxemia; E11.9 Type 2 diabetes mellitus without complications; J44.9 Chronic obstructive pulmonary disease, unspecified; E78.5 Hyperlipidemia, unspecified; E87.6 Hypokalemia; Z87.891 Personal history of nicotine dependence; Z79.899 Other long term (current) drug therapy; Z79.51 Long term (current) use of inhaled steroids; Z79.82 Long term (current) use of aspirin
CPT/HCPCS: 71046; 80053; 82553; 83880; 84484; 85025; 93005; 96374; J1940

== ENCOUNTER 2020-11-06 21:14 | Emergency (ER) | payer BC ==
[2020-11-06] MEDS ORDERED: Furosemide 40 MG/4 ML VIAL ONE (22:08)
[2020-11-06 22:28] LABS: #Basophils 0.1 thou/uL (0.0-0.2); #Eosinphils 0.2 thou/uL (0.0-0.7); #Monocytes 0.8 thou/uL (0.11-0.59); #Neutrophils 3.8 thou/uL (1.40-6.50); %Basophils 0.9 % (0.0-1.0); %Eosinophils 3.3 % (0.0-10.0); %Lymphocytes 16.4 % (21.0-51.0); %Monocytes 14.3 % (0.0-10.0); %Neutrophils 65.1 % (42.0-75.0); Hemoglobin 14.5 g/dL (12.0-16.0); Mean Corpuscular HGB CONC 32.1 g/dL (32.0-36.0); Mean Corpuscular Hemoglobin 27.1 pg (27.0-31.0); Mean Corpuscular Volume 84.3 fL (78.0-98.0); Mean Platelet Volume 12.7 fL (7.4-10.4); Platelet Count 127 thou/uL (130-400); Platelet Morphology Comment Appears Adequate; RBC Distribution Width 15.8 % (11.5-14.5); RBC Morphology Normal; Red Blood Cell (RBC) Count 5.36 mill/uL (4.20-5.40); White Blood Cell (WBC) Count 5.8 thou/uL (4.8-10.8)
[2020-11-06 22:35] LABS: ALT (SGPT) 22 U/L (8-55); AST (SGOT) 44 U/L (5-34); Albumin 4.2 g/dL (3.5-5.0); Alkaline Phosphatase 96 U/L (40-110); Anion Gap 19 mmol/L (10-20); BUN (Urea Nitrogen) 14 mg/dL (9.8-20.1); Bilirubin, Total 0.8 mg/dL (0.2-1.2); Calc. Creatinine Clearance 0 mL/min (70-130); Carbon Dioxide 23 mmol/L (22-29); Chloride 103 mmol/L (98-107); Globulin 3.4 g/dL (2.4-3.5); Glucose 102 mg/dL (70-105); Potassium 3.3 mmol/L (3.5-5.1); Protein, Total 7.6 g/dL (6.0-8.3); Sodium 142 mmol/L (136-145)
[2020-11-06 22:52] LABS: CKMB 1.6 ng/mL (0-6.6)
[2020-11-06 23:16] LABS: Bilirubin Negative (Negative); Blood, Urine Trace (Negative); Clarity Clear (Clear); Glucose, Urine (Dipstick) Negative (Negative); Ketone, Urine Negative (Negative); Leukocyte Negative (Negative); Nitrite Negative (Negative); Protein, Urine (Dipstick) Negative (Neg-Trace); Specific Gravity, Urine 1.015 (1.005-1.030); Urobilinogen 0.2 mg/dL (Less than 2)
[2020-11-06 23:21] LABS: Bacteria/HPF Rare-Few HPF (None Seen); RBC/HPF 0-3 HPF (0-3); Squamous Epithelial 0-3 HPF (0-3); WBC/HPF 0-3 HPF (0-3)
[2020-11-06 23:50] LABS: SARS-CoV-2 NAA Rapid Test Not Detected (NotDetected)
[2020-11-07] MEDS ORDERED: Aspirin 325 MG TAB ONE (00:45)
[2020-11-07] MEDS ORDERED: Acetaminophen 325 MG TAB PO PRN (03:00)
[2020-11-07] MEDS ORDERED: Ondansetron ODT 4 MG TAB SL PRN (03:00)
[2020-11-07] MEDS ORDERED: Ondansetron PF 4 MG/2 ML Vial IVP PRN (03:00)
[2020-11-07] MEDS ORDERED: Furosemide 40 MG/4 ML VIAL SLOW IVP SCH (04:00)
== END 2020-11-07 01:53 | disposition short-term general hospital (02) ==
LOC: MADERS 21:14
DX: I11.0 Hypertensive heart disease with heart failure (principal); I50.9 Heart failure, unspecified; Z20.822 Contact with and (suspected) exposure to COVID-19; R79.89 Other specified abnormal findings of blood chemistry; R09.02 Hypoxemia; E11.9 Type 2 diabetes mellitus without complications; J44.9 Chronic obstructive pulmonary disease, unspecified; E78.5 Hyperlipidemia, unspecified; E87.6 Hypokalemia; Z87.891 Personal history of nicotine dependence; Z79.82 Long term (current) use of aspirin; Z79.899 Other long term (current) drug therapy
CPT/HCPCS: 0240U; 71045; 80053; 81003; 81015; 82553; 83880; 84484; 85025; 87040; 93005; 94760; 96374; J1940

== ENCOUNTER 2021-03-17 23:14 | Emergency (ER) | payer BC ==
[2021-03-18] MEDS ORDERED: methylPREDNISolone Sod Succ/PF 125 MG/2 ML VIAL ONE (01:05)
[2021-03-18] MEDS ORDERED: Aspirin 325 MG TAB ONE (01:05)
[2021-03-18] MEDS ORDERED: Sodium Chloride 0.9% 100 ML ONE ×2 (01:34→02:54)
[2021-03-18] MEDS ORDERED: cefTRIAXone\\ROCEPHIN 1 GM VIAL ONE (01:34)
[2021-03-18] MEDS ORDERED: Magnesium 2 GM/50 ML BAG (IN WATER) ONE (01:34)
[2021-03-18] MEDS ORDERED: Doxycycline Hyclate 100 MG VIAL ONE (02:54)
[2021-03-18] MEDS ORDERED: Furosemide 20 MG/2 ML VIAL ONE (06:05)
[2021-03-18 07:08] LABS: Hemoglobin 15.5 g/dL (12.0-16.0); Mean Corpuscular HGB CONC 31.1 g/dL (32.0-36.0); Mean Corpuscular Hemoglobin 26.6 pg (27.0-31.0); Mean Corpuscular Volume 85.4 fL (78.0-98.0); Mean Platelet Volume 11.5 fL (7.4-10.4); Platelet Count 151 thou/uL (130-400); RBC Distribution Width 13.6 % (11.5-14.5); Red Blood Cell (RBC) Count 5.83 mill/uL (4.20-5.40); White Blood Cell (WBC) Count 7.7 thou/uL (4.8-10.8)
[2021-03-18 07:09] LABS: Band 3 % (5-11); Eosinophils 2 % (0-10); Lymphocytes 14 % (21-51); Monocytes 15 % (0-10)
[2021-03-18 07:15] LABS: ALT (SGPT) 19 U/L (8-55); AST (SGOT) 37 U/L (5-34); Albumin 3.7 g/dL (3.5-5.0); Alkaline Phosphatase 148 U/L (40-110); Anion Gap 16 mmol/L (10-20); BUN (Urea Nitrogen) 12 mg/dL (9.8-20.1); Bilirubin, Total 1.2 mg/dL (0.2-1.2); Calc. Creatinine Clearance 0 mL/min (70-130); Calcium 9.2 mg/dL (7.8-10.44); Carbon Dioxide 25 mmol/L (22-29); Chloride 104 mmol/L (98-107); Globulin 3.3 g/dL (2.4-3.5); Glucose 111 mg/dL (70-105); Potassium 3.2 mmol/L (3.5-5.1); Sodium 142 mmol/L (136-145)
[2021-03-18 07:48] LABS: SARS-CoV-2 NAA Rapid Test Not Detected (NotDetected)
[2021-03-18 07:58] LABS: CK (CPK) 69 U/L (29-168)
== END 2021-03-18 06:32 | disposition short-term general hospital (02) ==
LOC: MADERS 23:14
DX: I11.0 Hypertensive heart disease with heart failure (principal); I50.9 Heart failure, unspecified; R94.31 Abnormal electrocardiogram [ECG] [EKG]; Z20.822 Contact with and (suspected) exposure to COVID-19; E11.9 Type 2 diabetes mellitus without complications; J44.9 Chronic obstructive pulmonary disease, unspecified; E78.5 Hyperlipidemia, unspecified; J45.909 Unspecified asthma, uncomplicated; Z79.82 Long term (current) use of aspirin; Z79.84 Long term (current) use of oral hypoglycemic drugs; Z79.899 Other long term (current) drug therapy; Z79.01 Long term (current) use of anticoagulants
CPT/HCPCS: 71045; 80053; 82550; 83605; 83880; 84484; 85025; 87040; 93005; 96365; 96367; 96375; J0696; J1940; J2930; J3475; J3490; J7620; U0002

== ENCOUNTER 2022-02-22 15:16 | Outpatient (CLI) | payer MEDICARE, BC | END 2022-02-22 15:17 | disposition home or self-care (01) | LOC: MADRAD 15:16 | PROVIDERS: ATTEND Family Medicine | DX: J18.9 Pneumonia, unspecified organism (principal); I51.7 Cardiomegaly; J84.10 Pulmonary fibrosis, unspecified | CPT/HCPCS: 71046 ==

== ENCOUNTER 2022-08-09 16:02 | Emergency (ER) | payer BC, MEDICARE, OTHER ==
[2022-08-09] MEDS ORDERED: Amoxicillin/Potassium Clav 875 MG TAB ONE (17:35)
[2022-08-09] MEDS ORDERED: predniSONE 20 MG TAB ONE (17:35)
[2022-08-09] MEDS ORDERED: Albuterol 200 PUFF (6.7GM INHALER) ONE (17:35)
== END 2022-08-09 18:20 | disposition home or self-care (01) ==
LOC: MADERS 16:02
DX: J44.1 Chronic obstructive pulmonary disease with (acute) exacerbation (principal); I11.0 Hypertensive heart disease with heart failure; I50.9 Heart failure, unspecified; E11.9 Type 2 diabetes mellitus without complications; E78.00 Pure hypercholesterolemia, unspecified; Z20.822 Contact with and (suspected) exposure to COVID-19; Z87.891 Personal history of nicotine dependence; Z79.82 Long term (current) use of aspirin; Z79.84 Long term (current) use of oral hypoglycemic drugs; Z79.01 Long term (current) use of anticoagulants; Z79.899 Other long term (current) drug therapy
CPT/HCPCS: 71046; 87081; 87430; 87804 ×2; 99284; U0003; U0005; J7512

== ENCOUNTER 2022-09-25 11:46 | Outpatient (CLI) | payer OTHER ==
[2022-09-25 12:33] LABS: Anion Gap 16 mmol/L (10-20); BUN (Urea Nitrogen) 14 mg/dL (9.8-20.1); Calc. Creatinine Clearance 0 mL/min (70-130); Calcium 8.9 mg/dL (7.8-10.44); Carbon Dioxide 24 mmol/L (22-29); Chloride 106 mmol/L (98-107); Estimated GFR 79; Glucose 118 mg/dL (70-105); Potassium 3.5 mmol/L (3.5-5.1); Sodium 142 mmol/L (136-145)
[2022-09-25 18:09] LABS: #Eosinphils 1.1 thou/uL (0.0-0.7); #Lymphocytes 1.2 thou/uL (1.20-3.40); #Monocytes 0.9 thou/uL (0.11-0.59); #Neutrophils 4.4 thou/uL (1.40-6.50); %Basophils 0.6 % (0.0-1.0); %Eosinophils 14.5 % (0.0-10.0); %Lymphocytes 15.8 % (21.0-51.0); %Monocytes 11.4 % (0.0-10.0); %Neutrophils 57.8 % (42.0-75.0); Anisocytosis SLIGHT = 6-15 cells (100X) (0-5/hpf); Hemoglobin 12.2 g/dL (12.0-16.0); Hypochromia SLIGHT = 6-15 cells (100X) (0-5/hpf); MDiff Complete? YES; Mean Corpuscular Hemoglobin 23.3 pg (27.0-31.0); Mean Corpuscular Volume 72.9 fl (78.0-98.0); Microcytosis SLIGHT = 6-15 cells (100X) (0-5/hpf); Platelet Count 170 10x3/uL (130-400); Platelet Morphology Comment Appears Adequate; Polychromasia SLIGHT = 2-3 cells (100X) (0-2/hpf); RBC Distribution Width 18.6 % (11.5-14.5); Red Blood Cell (RBC) Count 5.22 mill/uL (4.20-5.40); Target Cells MODERATE= 6-15 cells (100X) (0-1/hpf); White Blood Cell (WBC) Count 7.6 10x3/uL (4.8-10.8)
== END 2022-09-25 11:47 | disposition home or self-care (01) ==
LOC: MADLAB 11:46
PROVIDERS: ATTEND Internal Medicine
DX: J45.50 Severe persistent asthma, uncomplicated (principal); I10 Essential (primary) hypertension; J34.89 Other specified disorders of nose and nasal sinuses; J84.10 Pulmonary fibrosis, unspecified; I27.20 Pulmonary hypertension, unspecified
CPT/HCPCS: 36415; 70220; 71046; 80048; 85025

== ENCOUNTER 2022-10-12 21:29 | Emergency (ER) | payer OTHER, MEDICAID ==
[2022-10-12 22:24] LABS: ALT (SGPT) 23 U/L (8-55); AST (SGOT) 43 U/L (5-34); Albumin 3.6 g/dL (3.5-5.0); Alkaline Phosphatase 107 U/L (40-110); Anion Gap 15 mmol/L (10-20); BUN (Urea Nitrogen) 10 mg/dL (9.8-20.1); Bilirubin, Total 1.5 mg/dL (0.2-1.2); Calc. Creatinine Clearance 0 mL/min (70-130); Calcium 8.2 mg/dL (7.8-10.44); Carbon Dioxide 22 mmol/L (22-29); Chloride 104 mmol/L (98-107); Estimated GFR 82; Globulin 3.3 g/dL (2.4-3.5); Glucose 123 mg/dL (70-105); Potassium 3.5 mmol/L (3.5-5.1); Protein, Total 6.9 g/dL (6.0-8.3); Sodium 137 mmol/L (136-145)
[2022-10-12] MEDS ORDERED: Sodium Chloride 0.9% 100 ML ONE (22:32)
[2022-10-12] MEDS ORDERED: Albuterol 2.5 MG/0.5 ML NEB ONE ×2 (22:32→22:38)
[2022-10-12] MEDS ORDERED: cefTRIAXone (ROCEPHIN) 1 GM VIAL ONE (22:32)
[2022-10-12] MEDS ORDERED: methylPREDNISolone Sod Succ/PF 125 MG/2 ML VIAL ONE (22:33)
[2022-10-12] MEDS ORDERED: Aspirin Chewable 81 MG TAB ONE (22:34)
[2022-10-12] MEDS ORDERED: Ipratropium Bromide 2.5 ml Neb ONE (22:43)
[2022-10-12 22:45] LABS: Band 1 % (5-11); Hemoglobin 12.4 g/dL (12.0-16.0); Hypochromia SLIGHT = 6-15 cells (100X) (0-5/hpf); Large Platelets SLIGHT; Lymphocytes 14 % (21-51); MDiff Complete? YES; Mean Corpuscular HGB CONC 30.9 g/dL (32.0-36.0); Mean Corpuscular Hemoglobin 22.8 pg (27.0-31.0); Mean Corpuscular Volume 73.8 fl (78.0-98.0); Mean Platelet Volume 14.2 fL (7.4-10.4); Microcytosis MODERATE=15-30 cells (100X) (0-5/hpf); Monocytes 6 % (0-10); Neutrophil 78 % (42-75); Platelet Count 108 10x3/uL (130-400); Platelet Morphology Comment Appears Decreased; RBC Distribution Width 17.5 % (11.5-14.5); Reactive Lymphocytes 1 % (0-10); Red Blood Cell (RBC) Count 5.45 mill/uL (4.20-5.40); Target Cells SLIGHT = 2-5 cells (100X) (0-1/hpf)
[2022-10-12 22:55] LABS: SARS-CoV-2 NAA Rapid Test Not Detected (NotDetected)
[2022-10-12 22:55] LABS: CKMB 0.9 ng/mL (0-6.6)
[2022-10-12] MEDS ORDERED: Azithromycin 500 MG VIAL ONE (23:20)
[2022-10-12] MEDS ORDERED: Sodium Chloride 0.9% 250 ML 250 ML ONE (23:20)
[2022-10-12] MEDS ORDERED: Ipratropium/Albuterol 3 ML NEB ONE (23:44)
[2022-10-12] MEDS ORDERED: Acetaminophen 500 MG TAB ONE (23:50)
[2022-10-13] MEDS ORDERED: Sodium Chloride 0.9% 1,000 ML ONE (00:03)
[2022-10-13] MEDS ORDERED: Nitroglycerin 2% Ointment 1 INCH/1 GM Packet ONE (00:19)
== END 2022-10-13 01:14 | disposition short-term general hospital (02) ==
LOC: MADERS 21:29
DX: J44.1 Chronic obstructive pulmonary disease with (acute) exacerbation (principal); R09.02 Hypoxemia; R79.9 Abnormal finding of blood chemistry, unspecified; D72.829 Elevated white blood cell count, unspecified; I11.0 Hypertensive heart disease with heart failure; I50.9 Heart failure, unspecified; E78.5 Hyperlipidemia, unspecified; Z79.82 Long term (current) use of aspirin; Z79.899 Other long term (current) drug therapy; Z79.01 Long term (current) use of anticoagulants; Z20.822 Contact with and (suspected) exposure to COVID-19
CPT/HCPCS: 71045; 80053; 82553; 83605; 83880; 84484; 85025; 87040; 93005; 94760; 96365; 96367; 96375; J0456; J0696; J2930; J3490; J7050; J7611; J7620

== ENCOUNTER 2023-02-06 18:23 | Emergency (ER) | payer OTHER, MEDICAID ==
[2023-02-06] MEDS ORDERED: Ipratropium/Albuterol 3 ML NEB ONE ×2 (19:10→20:51)
[2023-02-06] MEDS ORDERED: methylPREDNISolone Sod Succ/PF 125 MG/2 ML VIAL ONE (19:10)
[2023-02-06 19:58] LABS: #Basophils 0.1 thou/uL (0.0-0.2); #Eosinphils 0.6 thou/uL (0.0-0.7); #Monocytes 0.7 thou/uL (0.11-0.59); #Neutrophils 5.9 thou/uL (1.40-6.50); %Basophils 0.9 % (0.0-1.0); %Eosinophils 7.2 % (0.0-10.0); %Lymphocytes 11.9 % (21.0-51.0); %Monocytes 8.4 % (0.0-10.0); %Neutrophils 71.5 % (42.0-75.0); Anisocytosis SLIGHT = 6-15 cells (100X) (0-5/hpf); Hematocrit 35.5 % (36.0-47.0); MDiff Complete? YES; Mean Corpuscular HGB CONC 31.1 g/dL (32.0-36.0); Mean Corpuscular Volume 67.7 fl (78.0-98.0); Mean Platelet Volume 13.6 fL (7.4-10.4); Microcytosis SLIGHT = 6-15 cells (100X) (0-5/hpf); Platelet Adequacy Comment Appears Adequate; Platelet Count 179 10x3/uL (130-400); RBC Distribution Width 18.8 % (11.5-14.5); Red Blood Cell (RBC) Count 5.24 mill/uL (4.20-5.40); Target Cells MODERATE= 6-15 cells (100X) (0-1/hpf); White Blood Cell (WBC) Count 8.2 10x3/uL (4.8-10.8)
[2023-02-06 20:06] LABS: ALT (SGPT) 15 U/L (8-55); AST (SGOT) 36 U/L (5-34); Albumin 3.9 g/dL (3.5-5.0); Alkaline Phosphatase 79 U/L (40-110); Anion Gap 18 mmol/L (10-20); BUN (Urea Nitrogen) 18 mg/dL (9.8-20.1); Calc. Creatinine Clearance 0 mL/min (70-130); Calcium 9.4 mg/dL (7.8-10.44); Carbon Dioxide 23 mmol/L (22-29); Chloride 104 mmol/L (98-107); Estimated GFR 61; Globulin 3.8 g/dL (2.4-3.5); Glucose 60 mg/dL (70-105); Magnesium 1.7 mg/dL (1.6-2.6); Potassium 3.9 mmol/L (3.5-5.1); Protein, Total 7.7 g/dL (6.0-8.3); Sodium 141 mmol/L (136-145)
[2023-02-06] MEDS ORDERED: Aspirin Chewable 81 MG TAB ONE (20:51)
[2023-02-07] MEDS ORDERED: Ipratropium/Albuterol 3 ML NEB ONE ×2 (08:53→13:20)
[2023-02-07] MEDS ORDERED: Sodium Chloride 0.9% 100 ML ONE (09:12)
[2023-02-07] MEDS ORDERED: cefTRIAXone (ROCEPHIN) 1 GM VIAL ONE (09:12)
[2023-02-07] MEDS ORDERED: Azithromycin 500 MG VIAL ONE (09:27)
[2023-02-07] MEDS ORDERED: Sodium Chloride 0.9% 250 ML 250 ML ONE (09:27)
[2023-02-07 09:45] LABS: Troponin I 0.025 ng/mL (< 0.028)
[2023-02-07 13:07] LABS: Troponin I 0.022 ng/mL (< 0.028)
[2023-02-07 18:08] LABS: CKMB 1.4 ng/mL (0-6.6)
== END 2023-02-07 15:18 | disposition short-term general hospital (02) ==
LOC: MADERS 18:23
DX: J44.1 Chronic obstructive pulmonary disease with (acute) exacerbation (principal); J84.10 Pulmonary fibrosis, unspecified; R77.8 Other specified abnormalities of plasma proteins; I11.0 Hypertensive heart disease with heart failure; I50.9 Heart failure, unspecified; E11.9 Type 2 diabetes mellitus without complications; E78.00 Pure hypercholesterolemia, unspecified; Z79.01 Long term (current) use of anticoagulants; Z79.82 Long term (current) use of aspirin; Z79.84 Long term (current) use of oral hypoglycemic drugs; Z79.899 Other long term (current) drug therapy
CPT/HCPCS: 71046; 80053; 82553; 82962; 83735; 83880; 84484 ×2; 85025; 93005; 94760; J0456; 36416; 96365; 96367; 96375; J0696; J2930; J3490; J7050; J7620